=== PATIENT | female | born 1990 | race Caucasian/White ===

== ENCOUNTER 2019-02-19 05:50 | Inpatient (IN) | payer BC ==
[~2019-02-19] VITALS: Ht 167.6 cm; Wt 122.0 kg
--- OUTSIDE RECORDS SUMMARY | ~2019-02-19 | XMS | Clinical Summary ---
Demographics + + + | Address | [address] | | | [place] [address] | + + + | Home Phone | | + + + | Preferred Language | Unknown | + + + | Marital Status | Unknown | + + + | Cheondoism Affiliation | Unknown | + + + | Race | Unknown | + + + | Ethnic Group | Unknown | + + + Author + + + | Author | [facility] | + + + | Organization | [facility] | + + + | Address | Unknown | + + + | Phone | Unavailable | + + + Support +--------+ +---------+ + | Name | Relationship | Address | Phone | +--------+ +---------+ + | No,One | ECON | Unknown | | +--------+ +---------+ + Care Team Providers + +------+ + | Care Escrow Assistant Name | Role | Phone | + +------+ + PP | Unavailable | + +------+ + Allergies Not on File Current Medications Not on file Active Problems Not on file Social History + +-------+ +--------+------+ | Tobacco Use | Types | Packs/Day | Years | Date | | | | | Used | | + +-------+ +--------+------+ | Never Assessed | | | | | + +-------+ +--------+------+ + + + | Sex Assigned at | Date Recorded | | | | + + + | Not on file | | + + + Plan of Treatment Not on file Results Not on filefrom Last 3 Months Insurance +--------+--------+ +------+ +---------+ | Payer | Benefi | Subscriber | Type | Phone | Address | | | t Plan | ID | | | | | | / | | | | | | | Group | | | | | +--------+--------+ +------+ +---------+ | [employer]URIS | HMA | [id number] | | [phone] | | | INSURA | 3 | | [phone] | | | | NCE | | | | | +--------+--------+ +------+ +---------+ + +--------+ +--------+ + + | Guarantor Name | Accoun | Relation to | Date | Phone | Billing Address | | | t Type | Patient | of | | | | | | | | | | + +--------+ +--------+ + + | CRYSTAL GARCIA | Person | Self [birth year] Home: | [address] [place] [employer] | | | al/Fam | | 1989 | [phone] [place] [address] | | | kiya | | | [phone] | | + +--------+ +--------+ + +"
--- NOTE | 2019-02-19 08:51 | PR ---
[facility] [address] [facility] [place], [place] [address] Signed Progress Notes IP Datetime Report Generated by CPN: 02/19/2019 08:51 PROGRESS NOTES: [id number] Impression: Normal progression of labor; Reassuring heart rate Plan: Continue present management; Anticipate Vaginal Delivery VITAL SIGNS: [id number] Vital Signs: Reviewed; Within Normal Limits EXAM: [id number] Dilatation: 8.0 Effacement: 85 Station: -2 Uterine Contractions: q 3 minutes MEMBRANES: [id number] Comments: Called and notified by RN that pt comfortable and sleeping with epidural. Now 8cm. Pt would like to rest. Cat 1 tracing. Will continue expectant management. Fetus A: [id number] FHR Baseline: 130 Variability: Moderate 6-25bpm Accelerations: 15X15 Decelerations: None FHR Category: Category I Presentation: Vertex Comments on Fetus A: No evidence of metabolic acidosis Fetus B: [id number] Signing Physician: Yair Ayon DO Copies: ~ *Electronically Signed* 02/19/19 0851 YAIR AYON DO PATIENT NAME: TAHMINACHARLA BRIGIDO PROGRESS NOTE DATE OF : 86 PHYSICIAN: YAIR AYON DO RPT #: [id number] REPORT IS CONFIDENTIAL AND NOT TO BE RELEASED WITHOUT AUTHORIZATION
--- NOTE | 2019-02-19 10:56 | PR ---
[facility] [address] [place], [place] [address] Signed Progress Notes IP Datetime Report Generated by YING: 02/19/2019 10:56 PROGRESS NOTES: [id number] Impression: Normal progression of labor; Reassuring heart rate Procedures: Artificial ROM; Intrauterine Pressure Catheter Plan: Continue present management; Anticipate Vaginal Delivery VITAL SIGNS: [id number] Vital Signs: Reviewed; Within Normal Limits EXAM: [id number] Dilatation: 8.5 Effacement: 90 Station: -1 Uterine Contractions: q2-5 minutes MEMBRANES: [id number] ROM Note: Discussed AROM in detail including risks/beneftis. Verbal consent obtained. vertex well applied. AROM performed for moderate amount of clear fluid. Mother and baby tolerated well. Comments: Pt seen and examined. Doing well. Comfortable w/ epidural. Denies pressure or urge to push. AROM performed without difficulty as above. Anticipate soon. All questions answered Fetus A: [id number] FHR Baseline: 130 Variability: Moderate 6-25bpm Accelerations: 15X15 Decelerations: None FHR Category: Category I Presentation: Vertex Other Presentation: DEEJAY Comments on Fetus A: No evidence of metabolic acidosis Fetus B: [id number] Signing Physician: Yair Ayon DO Copies: ~ *Electronically Signed* 02/19/19 1056 YAIR AYON DO PATIENT NAME: CHARLA MARTEL PROGRESS NOTE DATE OF : 86 PHYSICIAN: YAIR AYON DO RPT #: [id number] REPORT IS CONFIDENTIAL AND NOT TO BE RELEASED WITHOUT AUTHORIZATION
--- NOTE | 2019-02-19 12:57 | PR ---
[facility] [address] [place], [place] [address] Signed Progress Notes IP Datetime Report Generated by YING: 02/19/2019 12:57 PROGRESS NOTES: [id number] Impression: Normal progression of labor; Reassuring heart rate Procedures: Sterile Vag Exam Plan: Continue present management; Anticipate Vaginal Delivery Informed Consent Obtain: Vaginal Delivery VITAL SIGNS: [id number] Vital Signs: Reviewed; Within Normal Limits EXAM: [id number] Dilatation: 9.5 Effacement: 100 Station: 0 Uterine Contractions: q 2 minutes MEMBRANES: [id number] Amniotic Fluid Color: Clear ROM Note: Discussed AROM in detail including risks/beneftis. Verbal consent obtained. vertex well applied. AROM performed for moderate amount of clear fluid. Mother and baby tolerated well. Comments: Pt seen and examined. Doing well. Feeling "restless," but comfortable w/ ctxs. On exam, pt w/ some bloody show. Small anterior lip that is easily reducable. Discussed 2nd stage of labor and expected course of delivery. All questions answered. Anticipate soon. Fetus A: [id number] FHR Baseline: 130 Variability: Moderate 6-25bpm Accelerations: 15X15 Decelerations: Variable FHR Category: Category II Presentation: Vertex Other Presentation: DEEJAY Comments on Fetus A: No evidence of metabolic acidosis Fetus B: [id number] Signing Physician: Yair Ayon DO Copies: *Electronically Signed* 02/19/19 1257 YAIR AYON DO PATIENT NAME: CHARLA MARTEL PROGRESS NOTE DATE OF : 86 PHYSICIAN: YAIR AYON DO RPT #: [id number] REPORT IS CONFIDENTIAL AND NOT TO BE RELEASED WITHOUT AUTHORIZATION [address] [address] Signed ~ *Electronically Signed* 02/19/19 [facility] YAIR AYON DO PATIENT NAME: CHARLA MARTEL PROGRESS NOTE DATE OF : 86 PHYSICIAN: YAIR AYON DO RPT #: [id number] REPORT IS CONFIDENTIAL AND NOT TO BE RELEASED WITHOUT AUTHORIZATION
--- NOTE | 2019-02-19 13:58 | PR ---
[facility] [address] [place], [place] [address] Signed Progress Notes IP Datetime Report Generated by YING: 02/19/2019 13:58 PROGRESS NOTES: [id number] Impression: Reassuring heart rate Other Impressions: Likely partial abruption Procedures: Scalp Electrode; Sterile Vag Exam Plan: Continue present management; Anticipate Vaginal Delivery Informed Consent Obtain: Vaginal Delivery Other Informed Consents: Reviewed likely partial abruption w/ pt and family VITAL SIGNS: [id number] Vital Signs: Reviewed VS Notable Details: Last BP elevated while pushing EXAM: [id number] Dilatation: 10.0 Effacement: 100 Station: 0 Uterine Contractions: q 1-2 minutes MEMBRANES: [id number] Amniotic Fluid Color: Bloody ROM Note: Discussed AROM in detail including risks/beneftis. Verbal consent obtained. vertex well applied. AROM performed for moderate amount of clear fluid. Mother and baby tolerated well. Comments: Pushing w/ patient. Amniotic fluid blood tinged. Little progress made w/ pushing. Asynclitism noted. A gentle manual internal rotation was attempted and blood clot _ 150cc was evacuated. Concern for partial abruption. Reviewed reassuring heart tracing with patient and family. Reviewed no contraindication to as long as heart tracing remains reassuring. Hemorrhage cart brought into the room. Right Of Way Clearer notified. Will continue w/ pushing efforts and still expect . Reviewed high station and contraindication to operative vaginal delivery at this point. All questions answered. Fetus A: [id number] FHR Baseline: 120 Variability: Moderate 6-25bpm Accelerations: 15X15 Decelerations: Variable FHR Category: Category II Presentation: Vertex Other Presentation: MIKE w/ Asynclitism Comments on Fetus A: No evidence of metabolic acidosis. *Electronically Signed* 02/19/191357 YAIR AYON DO PATIENT NAME: CHARLA MARTEL PROGRESS NOTE DATE OF : 86 PHYSICIAN: YAIR AYON DO RPT #: [id number] REPORT IS CONFIDENTIAL AND NOT TO BE RELEASED WITHOUT AUTHORIZATION [facility] [address] [place] [address] Signed Fetus B: [id number] Signing Physician: Yair Ayon DO Copies: ~ *Electronically Signed* 02/19/19 135 YAIR AYON DO PATIENT NAME: CHARLA MARTELAE PROGRESS NOTE DATE OF : 86 PHYSICIAN: YAIR AYON DO RPT #: [id number] REPORT IS CONFIDENTIAL AND NOT TO BE RELEASED WITHOUT AUTHORIZATION
--- NOTE | 2019-02-20 09:25 | PR ---
[facility] [address] [facility] [place], [place] [address] Signed PP Progress Notes Datetime Report Generated by CPN: 02/20/2019 09:25 SUBJECTIVE: [id number] Pain: Within normal limits Nausea/Vomiting: Denies Flatus: Yes Bowel Movement: No Vital Signs: [id number] Vital Signs: Reviewed; Within Normal Limits EXAM: [id number] Cardiovascular: Normal Respiratory: Normal Lochia: Normal Vulva/Perineum: Not Done Breasts: Not Done CVA Tenderness: Normal Extremities: Normal Incision: Not Applicable Progress: Normal Exam Comments: fundus firm U-2 nontender IMPRESSION/PLAN/PROCEDURES: [id number] Impression: Normal progression Plan: Discharge Progress Notes: Pt seen and examined. Doing well. Ambulating, voiding, and tolerating full diet. Pain and lochia minimal. well. No fevers/chills/discharge or other concerns. Desires d/c home today. Signing Physician: Yair Ayon DO Copies: ~ *Electronically Signed* 02/20/19 09 YAIR AYON DO PATIENT NAME: CHARLA MARTEL PROGRESS NOTE DATE OF : 86 PHYSICIAN: YAIR AYON DO RPT #: [id number] REPORT IS CONFIDENTIAL AND NOT TO BE RELEASED WITHOUT AUTHORIZATION
== END 2019-02-20 15:30 | disposition home or self-care (01) | DRG 807 ==
LOC: FBCO 05:50 → FBC 06:20
PROVIDERS: ADMIT Obstetrics & Gynecology
PROC: 10E0XZZ Delivery of Products of Conception, External Approach (ICD-10-PCS; principal; 2019-02-19)
PROC: 0KQM0ZZ Repair Perineum Muscle, Open Approach (ICD-10-PCS; 2019-02-19)
PROC: 10907ZC Drainage of Amniotic Fluid, Therapeutic from Products of Conception, Via Natural or Artificial Opening (ICD-10-PCS; 2019-02-19)
PROC: 00HU33Z Insertion of Infusion Device into Spinal Canal, Percutaneous Approach (ICD-10-PCS; 2019-02-19)
PROC: 3E0R3BZ Introduction of Anesthetic Agent into Spinal Canal, Percutaneous Approach (ICD-10-PCS; 2019-02-19)
DX: O45.93 Premature separation of placenta, unspecified, third trimester (principal); Z37.0 Single live birth; O76 Abnormality in fetal heart rate and rhythm complicating labor and delivery; O70.1 Second degree perineal laceration during delivery; Z3A.38 38 weeks gestation of pregnancy; Z79.82 Long term (current) use of aspirin
CPT/HCPCS: 01960; 36415; 85027; J2590; J2795; J7120

== ENCOUNTER 2021-10-13 18:44 | Emergency (ER) | payer OTHER ==
[~2021-10-13] VITALS: Ht 167.6 cm; Wt 121.6 kg
[2021-10-13] MEDS ORDERED: VITAMIN D21250 MCG PO (20:27)
== END 2021-10-13 21:36 | disposition home or self-care (01) ==
LOC: ED 18:44
DX: S69.92XA Unspecified injury of left wrist, hand and finger(s), initial encounter (principal); W22.8XXA Striking against or struck by other objects, initial encounter; Z79.899 Other long term (current) drug therapy
CPT/HCPCS: 73140; 99283-25